=== PATIENT | male | born 1980 | race Caucasian/White ===

== ENCOUNTER 2016-12-28 09:52 | Emergency (ER) | payer SELFPAY ==
[~2016-12-28] VITALS: Ht 195.6 cm; Wt 96.8 kg
[2016-12-28 10:45] VITALS: BP 151/95
== END 2016-12-28 10:45 | disposition left against medical advice (07) ==
LOC: ED 09:52
DX: M54.9 Dorsalgia, unspecified (principal); R06.02 Shortness of breath; Z79.899 Other long term (current) drug therapy; Z87.891 Personal history of nicotine dependence; Z53.29 Procedure and treatment not carried out because of patient's decision for other reasons
CPT/HCPCS: 80307; 85378; G0480